=== PATIENT | male | born 1955 | race Caucasian/White ===

== ENCOUNTER → 2024-03-11 15:50 | Outpatient (REF) | payer MEDICARE, OTHER, SELFPAY | LOC: HWRCS 15:50 | PROVIDERS: ATTENDING PHYSICIAN Internal Medicine; FAMILY PHYSICIAN Family Medicine | DX: I48.0 Paroxysmal atrial fibrillation (principal) | CPT/HCPCS: 93306 ==

== ENCOUNTER 2024-03-30 05:59 | Day surgery (SDC) | payer MEDICARE, OTHER, SELFPAY ==
[2024-03-17 08:21] VITALS: BMI 28.0
[2024-03-30] VITALS (9 sets, daily range): BP systolic 90–126; BP diastolic 46–74; BMI 27.1
--- NOTE | 2024-03-30 10:27 | ITS.CL.ABL ---
Addendum entered and electronically signed by Akil Bell MD 03/30/24 10:40:
Delete - in error.
Please delete this report.
Correction:
Patient does not have any ICD in place. There was pasting error with the device interrogation. Please delete this report.
Original Note:
[facility] Splitter - Ablation
Ablation
Procedure Report:
AFIB ablation:
Mr. Owusu is a very pleasant 69 yr old gentleman with symptomatic paroxysmal AF presented today to the EP lab for atrial fibrillation ablation.
CHADSVasc 2 (Age, HTN)
Date of the Procedure:
03/30/2024
Indications:
Paroxysmal atrial fibrillation
Pre-Operative Diagnosis:
Paroxysmal atrial fibrillation
Post-Operative Diagnosis:
Paroxysmal atrial fibrillation
Procedure Performed:
Atrial fibrillation ablation with Pulsed-Field approach for pulmonary vein isolation
Performing Physician:
Akil Bell MD
Assistants:
EP staff
Anesthesia:
See anesthesia records
Detailed Description of the Procedure:
Written informed consent was obtained from the patient after a full explanation of the risks and benefits of the procedure including the risks of sedation and anesthesia.
The patient was brought to the electrophysiology laboratory in stable condition in fasting state. Continuous electrocardiographic and hemodynamic monitoring was initiated.
The initial rhythm was normal sinus rhythm.
Device Interrogation:
Patient has Med[employer] ICD in place. The device was interrogated at the start of the case. The device and the lead was working normally. The tachy-therapies monitoring and interventions were suspended before the start of the case. The senior analyst programmer
remained connected in the room throughout the procedure.
At the end of the case the device was reprogrammed to normal functioning at the previous settings. All therapies are resumed and ICD was armed before patient left the procedure room.
The procedure site was meticulously prepared with surgical scrub and allowed to dry with no pooling. Sterile draping was applied to cover the procedure site. The image intensifier was draped with sterile bag and positioned over the patient. After
infusion of local anesthetic, vascular access was obtained under ultrasound guidance and sheaths were placed over guide wire as detailed below.
Sheath and Catheter Placement:
In the right femoral vein, an 8-Bahamian sheath was placed under ultrasound guidance for use during the ablation procedure and a mapping catheter was intermittently placed in the high right atrium, right ventricle, left atrium. In the right femoral
vein, another 9-Fr sheath was placed for use during intra-cardiac echo procedure. Another 7Fr sheath was placed in the left femoral vein for CS catheter placement.
The sheaths were upgraded as needed during the case. Intra-cardiac catheters were positioned using direct fluoroscopic guidance. Decapolar catheter advanced into CS position. ICE catheter was placed in RA. The following catheters / sheaths were
placed
Sheaths:
��������� 15Fr steerable sheath (vitaMedMDCath Cross�, [employer]) in right femoral vein in right femoral vein
��������� 9Fr in right femoral vein
Catheters:
��������� LULU HD Grid mapping catheter � at locations of RA, LA
��������� PulseSelect� PFA catheter
��������� ICE catheter -AcuNav - at locations of RA, SVC, and RV.
Intracardiac ECHO:
An 8-Bahamian AcuNav intracardiac ECHO (ICE) probe was advanced through the 9-Bahamian sheath in the right femoral vein into the right atrium under fluoroscopic and ICE ultrasound image guidance and a baseline ECHO study was performed. The left atrial
size was mildly dilated. There was moderate tricuspid regurgitation. The aortic valve was grossly normal. There was normal left ventricular systolic functions. There is no pericardial effusion. All the four veins were identified and has flow
identified.
During the procedure, ICE was used for monitoring of complications, guidance of trans-septal puncture, monitor the catheter position and tracking ablation lesions. No change in the pericardial space noted throughout the procedure.
Trans-septal Puncture:
Heparin was initiated and infused to maintain appropriate ACT. A J-tipped guidewire was advanced through the 8-Bahamian sheath in the right femoral vein into the superior vena cava under fluoroscopic and ICE guidance. The 8-Bahamian sheath was exchanged
for a FlexCath Cross sheath which was advanced into the superior vena cava. An AcXunLight transseptal access system was utilized to perform the trans-septal puncture. The apparatus was withdrawn until it was in contact with the fossa ovalis. The
position was adjusted based on fluoroscopy and ultrasound images from ICE. Under fluoroscopic, hemodynamic and ICE ultrasound guidance, left atrium was cannulated by advancing the needle. Once atrial septum was cannulated, the needle was pulled back
and a guide wire was advanced through the needle into the left atrium. The guide wire was advanced into the left superior pulmonary vein. The dilator was not able to cross the septum and the guide was replaced with [employer] Protrack wire. The dilator
and the sheath was able to cross over the rail of Protrack. Both the sheath and the dilator was advanced into the left atrium. The dilator with the needle was withdrawn. Blood was aspirated from the FlexCath cross sheath and arterial blood
confirmed. The sheath was flushed. Saline injection noted into the left atrium on ICE. The mapping catheter was advanced in the Agilis sheath into the left pulmonary vein. Left atrial pressure was measured.
3D Electroanatomic Mapping:
Using the HD Grid catheter advanced through sheath into the left atrium, an electroanatomic map (EAM) of the left atrium was created using [employer] mapping system. The map was used for localization of catheter position and tacking of ablation
lesions. The EAM of the left atrium showed 4 pulmonary veins with two left sided and two right sided veins electrically connected to the body the LA. The EAM showed no significant scar in the left atrium.
The LA was normal in size.
Following the EAM, preparation were made for ablation.
Ablation:
Ablation # 1: Pulmonary vein Isolation:
Glycopyrrolate 0.2 mg was given prior to the placement of ablation. Using [employer]� pulsed field ablation system, pulmonary vein isolation was achieved. First the ablation catheter was placed in the LIPV and ostial ablation lesions were performed
in a counter clock [place] approach all around the PV ostium circumferentially. Then the catheter was placed on the antral location and multiple ablation lesions were placed circumferentially on the antrum of the vein.
In the similar fashion, the LSPV were isolated.
Then the catheter was moved to right sided veins. The ostial and antral ablations were placed as noted above to the RSPV and RIPV.
Post ablation Electroanatomic mapping:
Once the sinus rhythm achieved, the LA was mapped with HD grid in detail.
The veins were isolated and the posterior wall had no electrogram left as well. Rest of the LA was normal. The ALTAF had good signal present.
EPS and Confirmation of the PVI and bidirectional block:
Following achievement of entrance block at the pulmonary veins, pacing from the HD catheter in each of the four veins at 10 milliamps for 2 milliseconds showed entrance and exit block. All PVI were rechecked at the end of the case and remained
isolated with dissociated and local capture with pacing. Entrance and exit block were demonstrated in all veins.
Procedure End
ICE study was done again that showed no epicardial accumulation. No complications noted.
Following the completion of the EP study, catheters were removed. Protamine 30 mg was given at the end of the procedure and ACT was checked repeatedly. The sheaths were removed and hemostasis achieved with VASCADE and manual compression after
acceptable ACT is achieved.
Left atrial Pressure:
Mean LA pressure was 8mmHg
Mean RA pressure was 3mmHg
Estimated Blood loss:
<10 cc
Specimens Removed:
None.
Implants / Devices:
None
Urine output:
None
Packs / Drains/ Tubes:
None
Instrument / Sponge Count Correct:
Yes
Complications of the Procedure:
None
Condition of Patient at Time of Transfer:
Hemodynamically stable with no neurological or vascular compromise.
Summary:
Successful atrial fibrillation ablation with Pulsed Field approach for pulmonary vein isolation
Figures from the Procedure:
Figure 1: The electroanatomic mapping (EAM) of the left atrium with bipolar voltage (purple indicates normal electrical activity with trevino as no myocardial muscle electric activity indicating a line of block or scar.
--- NOTE | 2024-03-30 10:40 | ITS.CL.ABL ---
Instrumentation Engineering Technician - Ablation
Ablation
Procedure Report:
AFIB ablation:
Mr. Owusu is a very pleasant 69 yr old gentleman with symptomatic paroxysmal AF presented today to the EP lab for atrial fibrillation ablation.
Date of the Procedure:
03/30/2024
Indications:
Paroxysmal atrial fibrillation
Pre-Operative Diagnosis:
Paroxysmal atrial fibrillation
Post-Operative Diagnosis:
Paroxysmal atrial fibrillation
Procedure Performed:
Atrial fibrillation ablation with Pulsed-Field approach for pulmonary vein isolation
Performing Physician:
Akil Bell MD
Assistants:
EP staff
Anesthesia:
See anesthesia records
Detailed Description of the Procedure:
Written informed consent was obtained from the patient after a full explanation of the risks and benefits of the procedure including the risks of sedation and anesthesia.
The patient was brought to the electrophysiology laboratory in stable condition in fasting state. Continuous electrocardiographic and hemodynamic monitoring was initiated.
The initial rhythm was normal sinus rhythm.
The procedure site was meticulously prepared with surgical scrub and allowed to dry with no pooling. Sterile draping was applied to cover the procedure site. The image intensifier was draped with sterile bag and positioned over the patient. After
infusion of local anesthetic, vascular access was obtained under ultrasound guidance and sheaths were placed over guide wire as detailed below.
Sheath and Catheter Placement:
In the right femoral vein, an 8-Greenlandic sheath was placed under ultrasound guidance for use during the ablation procedure and a mapping catheter was intermittently placed in the high right atrium, right ventricle, left atrium. In the right femoral
vein, another 9-Fr sheath was placed for use during intra-cardiac echo procedure. Another 7Fr sheath was placed in the left femoral vein for CS catheter placement.
The sheaths were upgraded as needed during the case. Intra-cardiac catheters were positioned using direct fluoroscopic guidance. Decapolar catheter advanced into CS position. ICE catheter was placed in RA. The following catheters / sheaths were
placed
Sheaths:
��������� 15Fr steerable sheath (FlexCath Cross�, [employer]) in right femoral vein in right femoral vein
��������� 9Fr in right femoral vein
Catheters:
��������� LULU HD Grid mapping catheter � at locations of RA, LA
��������� PulseSelect� PFA catheter
��������� ICE catheter -AcuNav - at locations of RA, SVC, and RV.
Intracardiac ECHO:
An 8-Greenlandic AcuNav intracardiac ECHO (ICE) probe was advanced through the 9-Greenlandic sheath in the right femoral vein into the right atrium under fluoroscopic and ICE ultrasound image guidance and a baseline ECHO study was performed. The left atrial
size was mildly dilated. There was moderate tricuspid regurgitation. The aortic valve was grossly normal. There was normal left ventricular systolic functions. There is no pericardial effusion. All the four veins were identified and has flow
identified.
During the procedure, ICE was used for monitoring of complications, guidance of trans-septal puncture, monitor the catheter position and tracking ablation lesions. No change in the pericardial space noted throughout the procedure.
Trans-septal Puncture:
Heparin was initiated and infused to maintain appropriate ACT. A J-tipped guidewire was advanced through the 8-Greenlandic sheath in the right femoral vein into the superior vena cava under fluoroscopic and ICE guidance. The 8-Greenlandic sheath was exchanged
for a FlexCath Cross sheath which was advanced into the superior vena cava. An [employer] Synth transseptal access system was utilized to perform the trans-septal puncture. The apparatus was withdrawn until it was in contact with the fossa ovalis. The
position was adjusted based on fluoroscopy and ultrasound images from ICE. Under fluoroscopic, hemodynamic and ICE ultrasound guidance, left atrium was cannulated by advancing the needle. Once atrial septum was cannulated, the needle was pulled back
and a guide wire was advanced through the needle into the left atrium. The guide wire was advanced into the left superior pulmonary vein. The dilator was not able to cross the septum and the guide was replaced with [employer] Protrack wire. The dilator
and the sheath was able to cross over the rail of Protrack. Both the sheath and the dilator was advanced into the left atrium. The dilator with the needle was withdrawn. Blood was aspirated from the FlexCath cross sheath and arterial blood
confirmed. The sheath was flushed. Saline injection noted into the left atrium on ICE. The mapping catheter was advanced in the Agilis sheath into the left pulmonary vein. Left atrial pressure was measured.
3D Electroanatomic Mapping:
Using the HD Grid catheter advanced through sheath into the left atrium, an electroanatomic map (EAM) of the left atrium was created using [employer] LULU mapping system. The map was used for localization of catheter position and tacking of ablation
lesions. The EAM of the left atrium showed 4 pulmonary veins with two left sided and two right sided veins electrically connected to the body the LA. The EAM showed no significant scar in the left atrium.
The LA was normal in size.
Following the EAM, preparation were made for ablation.
Ablation:
Ablation # 1: Pulmonary vein Isolation:
Glycopyrrolate 0.2 mg was given prior to the placement of ablation. Using [employer]� pulsed field ablation system, pulmonary vein isolation was achieved. First the ablation catheter was placed in the LIPV and ostial ablation lesions were performed
in a counter clock [place]vel[place] approach all around the PV ostium circumferentially. Then the catheter was placed on the antral location and multiple ablation lesions were placed circumferentially on the antrum of the vein.
In the similar fashion, the LSPV were isolated.
Then the catheter was moved to right sided veins. The ostial and antral ablations were placed as noted above to the RSPV and RIPV.
Post ablation Electroanatomic mapping:
Once the sinus rhythm achieved, the LA was mapped with HD grid in detail.
The veins were isolated and the posterior wall had no electrogram left as well. Rest of the LA was normal. The ALTAF had good signal present.
EPS and Confirmation of the PVI and bidirectional block:
Following achievement of entrance block at the pulmonary veins, pacing from the HD catheter in each of the four veins at 10 milliamps for 2 milliseconds showed entrance and exit block. All PVI were rechecked at the end of the case and remained
isolated with dissociated and local capture with pacing. Entrance and exit block were demonstrated in all veins.
Procedure End
ICE study was done again that showed no epicardial accumulation. No complications noted.
Following the completion of the EP study, catheters were removed. Protamine 30 mg was given at the end of the procedure and ACT was checked repeatedly. The sheaths were removed and hemostasis achieved with VASCADE and manual compression after
acceptable ACT is achieved.
Left atrial Pressure:
Mean LA pressure was 8mmHg
Mean RA pressure was 3mmHg
Estimated Blood loss:
<10 cc
Specimens Removed:
None.
Implants / Devices:
None
Urine output:
None
Packs / Drains/ Tubes:
None
Instrument / Sponge Count Correct:
Yes
Complications of the Procedure:
None
Condition of Patient at Time of Transfer:
Hemodynamically stable with no neurological or vascular compromise.
Summary:
Successful atrial fibrillation ablation with Pulsed Field approach for pulmonary vein isolation
Figures from the Procedure:
Figure 1: The electroanatomic mapping (EAM) of the left atrium with bipolar voltage (purple indicates normal electrical activity with trevino as no myocardial muscle electric activity indicating a line of block or scar.
[2024-03-30] MEDS: ANESTHETIC LOZENGE 1 LOZENGE PO (11:29)
--- NOTE | 2024-03-30 12:38 | W.PN.UPDATE ---
Update Note
Progress Note Update
Pt seen post PFA. Right femoral site with vascade closure, no ht/bleeding, non tender. Post EKG SB/SR 50-60s, no acute changes. OOB ambulating, urinating without difficulty. Resume eliquis this evening. Continue other meds as before. Followup at [facility]
as scheduled. Home today if groin site/tele remain stable.
== END 2024-03-30 12:32 | disposition home or self-care (01) ==
LOC: CATH 05:59
PROVIDERS: ATTENDING PHYSICIAN Internal Medicine Cardiovascular Disease; FAMILY PHYSICIAN Family Medicine; OTHER PHYSICIAN Internal Medicine
DX: I48.0 Paroxysmal atrial fibrillation (principal); Z79.01 Long term (current) use of anticoagulants; I10 Essential (primary) hypertension; E78.5 Hyperlipidemia, unspecified; E03.9 Hypothyroidism, unspecified
CPT/HCPCS: C1732; C1733; C1892; C1759; 85347; 86850; 86900; 86901; 93005; 93656; C1760

== ENCOUNTER 2024-09-28 06:45 | Day surgery (SDC) | payer MEDICARE, OTHER, SELFPAY ==
[2024-09-28] VITALS (7 sets, daily range): BP systolic 127–153; BP diastolic 70–86; BMI 26.9
[2024-09-28] MEDS: HEPARIN 5000 UNITS SC (09:28)
[2024-09-28] MEDS: TYLENOL 1000 MG PO (09:28)
[2024-09-28] MEDS: NORMOSOL-R/PLASMALYTE-A 1000 IV (09:30)
--- NOTE | 2024-09-28 11:32 | W.IMMPOSTOP ---
Surgical Immed Post Op Note
-
Primary Surgeon: Doris
Assisting: Shannon MERLOS
Pre-op Diagnosis: Incarcerated umbilical hernia
Post-op Diagnosis: Incarcerated umbilical and epigastric hernias
Procedure Performed: Robot assisted laparoscopic repair of Incarcerated umbilical and epigastric hernias (rTAPP) [Hernia size 9cm]
Anesthesia Type: GETA + TAP block
Specimen / Cultures: None
Estimated Blood Loss:5cc
Complications: None immediate
Operative Findings: 2cm x 1.5 cm umbilical hernia with incarcerated fat, 7cm superior to this a 5mm x 1cm epigastric defect with incarcerated fat; 15cm x 15cm bard soft mesh
--- NOTE | 2024-09-28 11:35 | OR.RPT ---
Operative Report
Operative Report
Primary Surgeon: Doris
Assisting: Shannon MERLOS
Pre-op Diagnosis: Incarcerated umbilical hernia
Post-op Diagnosis: Incarcerated umbilical and epigastric hernias
Procedure Performed: Robot assisted laparoscopic repair of Incarcerated umbilical and epigastric hernias (rTAPP) [Hernia size 9cm]
Anesthesia Type: GETA + TAP block
Specimen / Cultures: None
Estimated Blood Loss:5cc
Complications: None immediate
Operative Findings: 2cm x 1.5 cm umbilical hernia with incarcerated fat, 7cm superior to this a 5mm x 1cm epigastric defect with incarcerated fat; 15cm x 15cm bard soft mesh
Date of surgery: 09/25/24
Indications:� This 69M developed a symptomatic incarcerated umbilical hernia. Robot assisted laparoscopic repair was planned.
Description of procedure:� The patient was taken to the operating room and positioned into supine position. The patient�s abdomen was prepped and draped in standard sterile fashion. A time-out was completed verifying correct patient, procedure,
site, positioning, and implants and special equipment prior to beginning this procedure.� The hernia was partially manually reduced after induction. A stab incision was made in the left upper quadrant, a Veress needle was inserted and proper
position was confirmed by aspiration and saline drop test. Following this, pneumoperitoneum was created with insufflation of carbon dioxide to 12 mmHg. Then a 8mm robotic trocar was inserted at the left anterior axillary line at the level of the
umbilicus. The laparoscope was inserted and no injuries were identified in the area. Under direct visualization, the initial trocar was exposed and two 8mm trocars were placed a hand's breadth above and below the initial trocar under direct
visualization.
Attention was turned to the umbilical defect. The peritoneum was incised several cm superior to the defect and a peritoneal flap was developed in transverse and caudad directions using blunt and sharp dissection and judicious electrocautery. The
defect was identified and measured as above. An additional epigastric defect was also identified. Incarcerated fatty contents were reduced from both defects. The defects were closed with 0 PDS stratafix suture. A 15cm x 15cm bard soft mesh was
passed into the abdomen. It was placed against the underside of the abdominal wall and secured in place with 2-0 vicryl sutures at all four corners and under the defect. The flap was closed over the mesh and secured with 2-0 monocryl stratafix
suture. A 14g angiocath was used to decompress the preperitoneal space. The flap sealed and suctioned nicely up to the abdominal wall. The mesh did not fold nor curl. A transversus abdominis plane block was then performed under laparoscopic vision
with marcaine/decadron.
After ensuring adequate hemostasis, the trocars were removed and the pneumoperitoneum allowed to escape. The trocar incisions were closed at the skin level using 4-0 monocryl and topical skin adhesive. All counts were correct and the patient
tolerated the procedure well and was taken to the postanesthesia care unit in stable condition.
== END 2024-09-28 13:00 | disposition home or self-care (01) ==
LOC: SDS 06:45
PROVIDERS: ATTENDING PHYSICIAN Surgery
DX: K42.0 Umbilical hernia with obstruction, without gangrene (principal); K43.6 Other and unspecified ventral hernia with obstruction, without gangrene
CPT/HCPCS: 49594; C1781

== ENCOUNTER 2024-11-06 20:39 | Inpatient (IN) | payer MEDICARE, OTHER, SELFPAY ==
[2024-11-06 15:55] VITALS: BP 124/80
[2024-11-06 16:33] LABS: % Basophils 0.3 % (0-2); % Eosinophils 0.2 % (0-6); % Immature Granulocytes 0.4 % (0-0.5); % Monocytes 10.1 % (1.7-9.3); Absolute Lymphocytes 1.1 10^3/uL (1.2-3.4); Absolute Neutrophils 7.9 10^3/uL (1.4-6.5); Hematocrit 42.1 % (39.0-52.0); Hemoglobin 14.7 g/dL (13.0-18.0); Mean Corp Hgb Conc. 34.9 g/dL (33.0-37.0); Mean Corpuscular Hgb 34.3 pg (27.0-31.0); Mean Corpuscular Volume 98.4 fL (80.0-94.0); Mean Platelet Volume 8.9 fL (7.4-10.4); Nucleated Red Blood Cells % 0 % (-); Platelet Count 246 10^3/uL (130-400); Red Blood Cell Count 4.28 10^6/uL (4.70-6.10); Red Cell Dist. Width 12.6 % (11.5-14.5); White Blood Cell Count 10.2 10^3/uL (4.8-10.8)
[2024-11-06 16:50] LABS: ALT (SGPT) 18 U/L (0-50); AST (SGOT) 18 U/L (17-59); Alkaline Phosphatase 60 U/L (38-126); Blood Urea Nitrogen 16 mg/dl (9-20); Calcium 9.4 mg/dl (8.4-10.2); Carbon Dioxide 22 mmol/L (22-30); Chloride 100 mmol/L (98-107); Glucose 120 mg/dl (70-99); Potassium 4.4 mmol/L (3.5-5.1); Sodium 134 mmol/L (135-145); Total Bilirubin 0.9 mg/dl (0.2-1.3); Total Protein 6.6 g/dl (6.3-8.2); eGFR > 60.00
[2024-11-06] MEDS: TYLENOL 1000 MG PO (17:21)
[2024-11-06] MEDS: NSS 1000 IV ×2 (17:24→23:01)
[2024-11-06 17:29] VITALS: BP 125/83
[2024-11-06 17:30] VITALS: BMI 25.2
--- NOTE | 2024-11-06 17:35 | ED.GENMED ---
History of Present Illness
General
Chief Complaint: Male Genito-Urinary Symptoms
Source: patient
Exam Limitations: none
Time Seen by Provider: 11/06/24 16:32
Nursing documentation reviewed up to this point in time: agreed with
History of Present Illness
History of Present Illness:
69 y/o M
h/o htn, hld PAF on eliquis
here with fever, urinary symptoms (dec urination, urgency, frequency), nausea,
pt says he also has mild R back pain
didn't eat all day
feels dehydrated
last tylenol 12 noon
no h/o prostate problems
no bleeding
thinks his urine looks dark/cloudy
no rectal pressure
Past History
Past History
ED Past Medical History: Arrthythmia (Paroxysmal atrial fibrillation) and HTN
ED Past Surgical History: None
Social History
Tobacco: Smoker
Alcohol: Occasional
Drug: None
Personal:
Living: with family
Employment: Employed
Family History
Family History: Negative Early CAD
Review of Systems
Review of Systems
Allergies reviewed?: Yes
All Other Systems: Not applicable
Phy Exam
Physical Exam
Physical Exam:
GENERAL: Alert , in no apparent distress
EYE: pupils equal and reactive
NECK: Supple
ENT: o/p clr, dry mucus membranes.
CARDIAC: Regular rate and rhythm .
LUNGS: Clear breath sounds bilaterally, no acute respiratory distress, no wheezes/rales/rhonchi
ABDOMEN: Soft, without focal tenderness, no r/g, no cvat, normal bowel sounds
R back pain
normal inspection
rectal deferred
NEUROLOGICAL: Alert and oriented, no focal neuro deficits
SKIN: Warm and dry, skin intact.
MUSCULOSKELETAL: No edema, well perfused. neg gonzález's sign
PSYCH: Normal and appropriate interaction.
Course
Orders/Labs/Results
Orders:
Orders
11/06/24 Breakfast
Regular
At Your Request: Full Participation
Does patient need a safe tray?: No
11/06/24 16:12
Complete Blood Count/With Diff Urgent
Comprehensive Metabolic Panel Urgent
11/06/24 16:44
Bladder Scan- Treatment ONCE
11/06/24 17:05
CT Abd/Pel (IV only)-DH only Urgent
Comment:
Reason For Exam: fever, nausea, r flank pain, dysuria,
11/06/24 17:06
0.9% Sodium Chloride 1000 ml [Nss] 1,000 ml IV BOLUS
Acetaminophen [Tylenol] 1,000 mg PO NOW STA
11/06/24 17:26
Lactic Acid Urgent
Urinalysis Reflex To Culture Urgent
Date Specimen was Collected: 11/06/24
Time Specimen was Collected: 16:48
Urine Microscopic Reflex Cult Urgent
Urine Culture Urgent
NITHYA Source: U
Specimen Description:
Date Specimen was Collected: 11/06/24
Time Specimen was Collected: 16:48
11/06/24 18:32
LevoFLOXacin 500 MG/100 ML [Levaquin] 500 mg in 100 ml IV NOW
11/06/24 20:11
Blood Culture Q30M
NITHYA Source: Blood/Venous
Specimen Description:
11/06/24 20:18
Blood Culture Q30M
NITHYA Source: Blood/Venous
Specimen Description:
11/06/24 20:28
Admit/Transfer Patient As Directed
Co-Sign Provider:
Level of Care: Inpatient admission
Assign to:: Telemetry
Physician / Group: declan mari
Diagnosis: UTi
Reason for Telemetry: Arrhythmia
Date to Stop Telemetry: 11/09/24
Time to Stop Telemetry: 11:00
Reason for Hospitalization: UTI
Expected length of stay greater than two midnights?: Yes
ELOS- Estimated Length of Stay in days: 3
I certify the patient meets the requirements for IP care: Yes
PRN Pain Medication Management As Directed
May give lesser potent ordered pain med per pt: Yes
preference::
Protocol:: Medication orders for pain may be administered in a
manner that supports deferring to patient preference
when the pt is:
- Requesting an ordered lesser potent pain medication.
Least to most potent pain medications are defined
as: acetaminophen < NSAID < tramadol < opioids
(morphine, oxycodone, hydromorphone).
- Requesting a lesser dose of the same medication IF
ORDERED.
- Requesting a less intrusive route of administration
if both routes are prescribed by the provider (PO <
IV).
11/06/24 20:29
Code Status As Directed
Resuscitation Status: Full Code
11/06/24 20:31
EKG [Electrocardiogram (*1)] Stat
Reason for Study: Atrial Fibrillation
11/06/24 20:51
Lactic Acid Stat
11/06/24 22:24
0.9% Sodium Chloride 1000 ml [Nss] 1,000 ml IV 125 mls/hr
Acetaminophen [Tylenol] 650 mg PO Q4HPRN PRN
Bisacodyl [Dulcolax] 10 mg RECTAL [id number] PRN
Docusate W/Senna [Senokot-S] 1 tablet PO BIDPRN PRN
Polyethylene Glycol Powder [Miralax] 17 grams PO DAILYPRN PRN
11/06/24 22:24
Activity As Directed
Activity Level: As Tolerated
Vital Signs As Directed
Frequency: Per unit guidelines
11/07/24 00:00
CefTRIAXone [Rocephin] 1,000 mg IV Q24H
11/07/24 08:00
Apixaban [Eliquis] 5 mg PO BID
11/07/24 18:00
Atenolol [Tenormin] 25 mg PO QPM
Cholecalciferol (Vitamin D3) [VITAMIN D3 (cholecalciferol)] 50 mcg PO QPM
Losartan [Cozaar] 25 mg PO QPM
11/09/24 11:00
DC Protocol for Telemetry ONCE
Abnormal Lab Results
11/06/24 11/06/24
16:12 17:26
RBC 4.28 L 10^6/uL
(4.70-6.10)
MCV 98.4 H fL
(80.0-94.0)
MCH 34.3 H pg
(27.0-31.0)
Absolute Neuts (auto) 7.9 H 10^3/uL
(1.4-6.5)
Absolute Lymphs (auto) 1.1 L 10^3/uL
(1.2-3.4)
Absolute Monos (auto) 1.0 H 10^3/uL
(0.1-0.6)
Neutrophils % 78.0 H %
(42.2-75.2)
Lymphocytes % 11.0 L %
(20.5-51.1)
Monocytes % 10.1 H %
(1.7-9.3)
Sodium 134 L mmol/L
(135-145)
Glucose 120 H mg/dl
(70-99)
Urine Ketones 3+ A
(Negative)
Ur Occult Blood Reflex 4+ A
(Negative)
Urine Nitrite (Reflex) Positive A
(Negative)
Leukocyte Esterase Rfl 3+ A
(Negative)
Urine RBC 7-10 A /HPF
(0-2)
Urine WBC (Reflex) 80-90 A /HPF
(0-5)
Urine Bacteria (Reflex) Many A
(Negative)
Urine Albumin (Reflex) 4+ A
(Neg - Trace)
11/06/24 16:12
11/06/24 16:12
Vital Signs
Temp: 39.3 C
Initial and Last Documented VS:
Initial Vital Signs
Temp Pulse Resp BP Pulse Ox
37.8 C 90 18 124/80 98
11/06/24 15:55 11/06/24 15:55 11/06/24 15:55 11/06/24 15:55 11/06/24 15:55
Last Documented Vital Signs
Temp Pulse Resp BP Pulse Ox
37.1 C 90 18 123/107 96
11/06/24 20:02 11/06/24 15:55 11/06/24 15:55 11/06/24 20:00 11/06/24 20:30
MDM/Problems Addressed
Differential Diagnosis Includes:
prostatitis, uti
MDM/Problems Addressed:
andria vázquez
69 y/o M no h/o prostate problems
htn, hld
here with fever, dec urine output/urinary frequency, R back pain
febrile, wbc normal, ua +
ct likely prostatitis and ascending complicated UTI
bcx x 2, levaquin
[facility] urologist agreed with admision
will see in the am
*Critical Care Note
Total Time (30-74mins, 75-104mins- exclusive of procedures): Not Applicable
ED Attending Note
-
Portions of this chart may have been created with voice recognition software.� Occasional wrong word or��sound alike� substitutions may have occurred due to the inherent limitations of voice recognition software.
Discharge Plan
Departure
Patient Disposition: Admit
Date of Disposition: 11/06/24
Time of Disposition: 18:32
Admit to: Med/Surg
Presentation/result/management discussed w/ accepting MD/DO: Hospitalist
Condition: Fair
Covid-19: Not Applicable
Discharge Problem:
Prostatitis, SIRS (systemic inflammatory response syndrome), ascending urinary tract infection
Interventions
Interventions:
*Risk Screen - Suicide Last Done: 11/06/24 15:55
*General Assessment Last Done: 11/06/24 15:55
*ED COVID-19 Vaccine History Last Done: 11/06/24 22:32
ED-Male Genitourinary Assessment Last Done: 11/06/24 17:30
[2024-11-06 17:43] LABS: Urine Albumin 4+ (Neg - Trace); Urine Bilirubin Negative (Negative); Urine Character Cloudy (Clear); Urine Color Yellow; Urine Glucose Negative (Negative); Urine Ketone 3+ (Negative); Urine Leukocyte 3+ (Negative); Urine Nitrite Positive (Negative); Urine Occult Blood 4+ (Negative); Urine Specific Gravity 1.015 (<1.030); Urine Urobilinogen 1+ (Neg - 1+)
[2024-11-06 17:49] LABS: Lactic Acid 0.9 mmol/L (0.7-2.0)
[2024-11-06 18:00] LABS: Urine Squamous Cell 0-2 /LPF (Few)
[2024-11-06 18:01] LABS: Urine Bacteria Many (Negative); Urine White Cell 80-90 /HPF (0-5)
[2024-11-06 18:34] VITALS: BP 117/84
[2024-11-06 19:00] VITALS: BP 114/71
[2024-11-06] MEDS: LEVAQUIN 100 IV (19:44)
[2024-11-06 20:00] VITALS: BP 123/107
--- NOTE | 2024-11-06 20:12 | HPS.HSE ---
Family Physician
-
Family Physician: Judith Holbrook MD
Chief Complaint
-
left pain, fever
History of Present Illness
69-year-old with past medical history for hypertension, hypothyroidism, A-fib, hyperlipidemia presented to us with right flank pain, burning with urination and fever of 102 for past 2 days. Patient was taking Tylenol with some relief in his
symptoms. Patient .patient denied chest pain or short of breath. Patient stating some headache. Patient denied any dizziness or syncope. denied abdominal pain, nausea, vomiting, diarrhea or constipation
Patient received dose of Levaquin in the ER. Blood culture sent from ER. patient received Tylenol and normal saline in ER. Admitting for further management
Medical History
Past Medical History
Past Medical History: Reports Other
Additional Past Medical History:
HNT
hypothyroidism
atrial fib
ascending aortic dilatation
hld
Past Surgical History: Reports Other
Additional Past Surgical History:
cardiac ablation
tendon repair right pointer finger
lap repair of incarcerated umbical and epigastric hernias
Social History
Tobacco: Non-smoker
Alcohol: Occasional
Drug: None
Personal:
Living: With Family
Family History
Family History: Not pertinent
Allergies / Home Medications
Allergies reflects when Allergies were last updated in [employer]
Home Medications with original date entered in [employer]
Allergy/Medication List:
Allergies
Allergy/AdvReac Type Severity Reaction Status Date / Time
No Known Allergies Allergy Verified 11/06/24 15:57
Home Medications
atenolol 25 mg tablet 25 mg PO QPM 05/16/15
cholecalciferol (vitamin D3) 50 mcg (2,000 unit) capsule (Vitamin D3) 50 mcg PO QPM 03/13/24
losartan 50 mg tablet 25 mg PO QPM 03/13/24
apixaban 5 mg tablet (Eliquis) 5 mg PO BID 11/06/24
Review of Systems
-
Constitutional: Reports No Symptoms
EENT: Reports No Symptoms
Respiratory: Reports No Symptoms
Cardiac: Reports No Symptoms
Abdomen/GI: Reports No Symptoms
: Reports Dysuria, Frequency and Flank Pain
Musculoskeletal: Reports No Symptoms
Skin: Reports No Symptoms
Neurological: Reports No Symptoms
Endocrine: Reports No Symptoms
Hematologic/Lymphatic: Reports No Symptoms
Psych: Reports No Symptoms
Physical Exam
Vital Signs
Vital Signs
Temp Pulse Resp BP Pulse Ox
101 F H 90 18 125/83 95
11/06/24 19:13 11/06/24 15:55 11/06/24 15:55 11/06/24 17:29 11/06/24 17:30
Physical Exam
General: Well Developed, Well Nourished and No Apparent Distress
HEENT: NormoCephalic, Moist mucous membranes and Atraumatic
Respiratory: Clear
Cardiac: S1/S2 and Regular Rhythm; No Murmur or Rub
GI: Soft, Non Tender, Non Distended and Normal Bowel Sounds; No Organomegaly
Rectal: Deferred by Provider
Musculoskeletal: No Clubbing, No Cyanosis and No Edema
Skin: No Rash
Neuro: AO x 3 and Nonfocal/grossly intact
Psych: Calm
Laboratory Results
-
11/06/24 16:12
11/06/24 16:12
Laboratory Results
Lactic Acid 0.9 mmol/L (0.7-2.0) 11/06/24 17:26
Total Bilirubin 0.9 mg/dl (0.2-1.3) 11/06/24 16:12
AST 18 U/L (17-59) 11/06/24 16:12
ALT 18 U/L (0-50) 11/06/24 16:12
Alkaline Phosphatase 60 U/L (38-126) 11/06/24 16:12
Data Reviewed
-
CT Scan: Report Reviewed by me
Lab Data: Labs Reviewed by me
Impression/Plan
-
#fever/decreased urine output/urinary frequency and back pain secondary to parostitis/ascending complicated UTI
-blood culture sent from ER
-Initiate on ceftriaxone
-Urology consulted
-Tylenol prn for fever and pain
-CT abdomen pelvis with SEVERE ACUTE INFECTIOUS CYSTITIS.
2. Acute right ascending urinary tract infection.
3. Severely enlarged prostate gland demonstrating heterogeneous enhancement which could be secondary to acute prostatitis or prostate cancer.
4. Severe diffuse colonic diverticulosis.
5. Fusiform infrarenal abdominal aortic aneurysm (2.7 cm AP dimension).
6. Severe discogenic degenerative disease at L2/L3 and L3/L4.
7. Grade 1 anterolisthesis of L5 on S1 secondary to bilateral L5 pars interarticularis spondylolysis.
# Paroxysmal A-fib
- Obtain EKG
- Eliquis and atenolol continued
# Hypertension
- Losartan continued with hold parameters
# DVT prophylaxis
- Eliquis
# CODE STATUS
-Full code
--- NOTE | 2024-11-06 20:17 | W.PN.UPDATE ---
Update Note
Progress Note Update
This note serves as an addendum to the H&P by semiconductor equipment technician FIONA Santa RIVERA
HPI
69M Smoker, on chr Eliquis for Prx AF, HTN seen at ER:
- pw fever, decreased urine output, urgency, frequency
- report nausea, poor POs
- report mild R back pain
- last Tylenol 12 noon
- denied no rectal pressure
No prior HX prostate problems
ER Tx>
NS 1L bolus
IV LVQ 500 mg
Tylenoll 1000 mg
VS
11/06/24
15:55 11/06/24
17:36
Temp 100.0 F 102.7 F H
Pulse 90
Blood pressure 124/80
SaO2 98
Oxygen Mode of Delivery Room air
PE
Gen: no apparent distress, not toxic
HEENT: an icteric
Neck: supple
Lungs: CTA , no acute respiratory distress
Cor: RRR S1 S2
Abdomen: Soft, without focal tenderness
IT RISK ADVISOR: Alert and oriented, no focal neuro deficits
MS: No edema
Psych: Normal and appropriate interaction
Labs
11/06/24 11/06/24
16:12 17:26
WBC 10.2
Sodium 134 L
Creatinine 0.9
eGFR > 60.00
Urine Clarity Cloudy
Urine Nitrite (Reflex) Positive A
Urine RBC 7-10 A
Urine WBC (Reflex) 80-90 A
BCx sent
CT Abd/Pel (IV only)
1. SEVERE ACUTE INFECTIOUS CYSTITIS.
2. Acute right ascending urinary tract infection.
3. Severely enlarged prostate gland demonstrating heterogeneous enhancement which could be secondary to acute prostatitis or prostate cancer.
4. Severe diffuse colonic diverticulosis.
5. Fusiform infrarenal abdominal aortic aneurysm (2.7 cm AP dimension).
6. Severe discogenic degenerative disease at L2/L3 and L3/L4.
7. Grade 1 anterolisthesis of L5 on S1 secondary to bilateral L5 pars interarticularis spondylolysis.
NO PRIOR hospitalist admission:
ASSESSMENT & PLAN
Early Sepsis due to male complicated UTI ( Cystitis, Parostitis with ascending UTI )
SIRS ( T 102.7, WCC 10.2)
Blader scan 48 cc only
ABx of choice for prostatitis : LVQ vs. CFTX
- IV LVQ at ER - will switch to IV CFTX to avoid QTC prolongation
- c/w IV NS
- check LA
- f/u BCx , UCx
- Trend T, WCC and LA
- Uro consulted
Prox AF on chr Eliquis
- c/w Eliquis and atenolol
Normotensive
Benign HTN
- c/w losartan and atenolol with hold index SBP < 100
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
Full code
IP TLM
[2024-11-06 21:13] LABS: Lactic Acid 0.7 mmol/L (0.7-2.0)
--- NOTE | 2024-11-06 22:35 | PTCARENOTE ---
Received patient from ED via stretcher. Patient ambulated from stretcher to bed independently. No current complaints of pain. Oriented patient to room and placed call mtz within reach.
[2024-11-06 22:39] VITALS: BMI 25.2
[2024-11-06 22:52] VITALS: BP 108/74; BMI 26.2
[2024-11-06] MEDS: STERILE WATER FOR INJECTION 10 ML IV (23:01)
[2024-11-06] MEDS: ROCEPHIN 1000 MG IV (23:01)
[2024-11-07 03:43] VITALS: BP 117/71
[2024-11-07] MEDS: NSS 1000 IV (07:30)
[2024-11-07] MEDS: TYLENOL 650 MG PO ×2 (07:30→20:11)
[2024-11-07 07:50] VITALS: BP 125/84
[2024-11-07] MEDS: ELIQUIS 5 MG PO ×2 (08:44→20:11)
[2024-11-07 11:21] VITALS: BP 122/84
--- NOTE | 2024-11-07 12:29 | CM ---
Patient seen bedside w/ spouse. Initial assessment completed. Patient is a 69-year-old with past medical history for hypertension, hypothyroidism, A-fib, hyperlipidemia presented to us with right flank pain, burning with urination and fever of 102
for past 2 days.
Patient resides w/ spouse, daughter and son-in-law in a single story rancher style home- 1 step to enter. Independent w/ ambulating, no device required. Independent w/ ADLs, no DME identified. No SNF/HC hx reported. OP therapy in the past.
Address, point of contact and insurance verified. Physical [address] is [address], [place] [address]
PCP: Judith Holbrook
Pharmacy: [facility]
Plan: Anticipate home; no needs
--- NOTE | 2024-11-07 12:37 | W.PN.HOSP.TC ---
Today's Communication/Plan
-
Continue with high-dose of ceftriaxone
Preliminary urine culture with E. coli
Await for susceptibility results
Await for blood culture data
Assessment / Plan
Assessment / Plan
General: Well Developed, Well Nourished and No Apparent Distress
HEENT: NormoCephalic, Moist mucous membranes and Atraumatic
Respiratory: Clear
Cardiac: S1/S2 and Regular Rhythm; No Murmur or Rub
GI: Soft, Non Tender, Non Distended and Normal Bowel Sounds; No Organomegaly
Rectal: Deferred by Provider
Musculoskeletal: No Clubbing, No Cyanosis and No Edema
Skin: No Rash
Neuro: AO x 3 and Nonfocal/grossly intact
Psych: Calm
Sepsis likely secondary to complicated urinary tract infection secondary to E. coli preliminary data
Blader scan 48 cc only
- continue with ceftriaxone but will increase dose to 2 g
- c/w IV NS
- Lactic acid normal
- Urine culture preliminary with E. coli. Blood cultures are in lab.
- Lactic acid was normal
Prox AF on chr Eliquis
- c/w Eliquis and atenolol
Normotensive
Benign HTN
- c/w losartan and atenolol with hold index SBP < 100
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
Full code
Anticipated Discharge: > 48 hours
Subjective/Interval History
-
Date of Service: November 07, 2024
states of improvement in dysuria
spiked fever earlier today
Objective Data
-
Vital Signs:
Vital Signs
Temp Pulse Resp BP Pulse Ox
98.7 F 67 16 122/84 97
11/07/24 11:21 11/07/24 11:21 11/07/24 11:21 11/07/24 11:21 11/07/24 11:21
I&O
11/06/24 11/07/24 11/08/24
06:59 06:59 06:59
Intake Total 320 / 320
Balance 320 / 320
Data Reviewed
-
Total Time Spent with Patient (in minutes): 55
[2024-11-07 15:22] VITALS: BP 131/82
[2024-11-07] MEDS: NSS IV (16:40)
[2024-11-07] MEDS: ROCEPHIN 2000 MG IV (17:14)
[2024-11-07] MEDS: COZAAR 25 MG PO (17:15)
[2024-11-07] MEDS: STERILE WATER FOR INJECTION 20 ML IV (17:15)
[2024-11-07] MEDS: TENORMIN 25 MG PO (17:15)
[2024-11-07] MEDS: VITAMIN D3 (cholecalciferol) 50 MCG PO (17:16)
[2024-11-07 19:42] VITALS: BP 125/77
[2024-11-07 23:39] VITALS: BP 125/74
[2024-11-08 03:56] VITALS: BP 129/73
[2024-11-08 06:58] LABS: % Basophils 0.9 % (0-2); % Eosinophils 2.4 % (0-6); % Immature Granulocytes 0.7 % (0-0.5); % Lymphocytes 28.4 % (20.5-51.1); % Monocytes 17.9 % (1.7-9.3); % Neutrophils 49.7 % (42.2-75.2); Absolute Basophils 0.1 10^3/uL (0-0.2); Absolute Eosinophils 0.1 10^3/uL (0-0.7); Absolute Lymphocytes 1.7 10^3/uL (1.2-3.4); Absolute Neutrophils 2.9 10^3/uL (1.4-6.5); Hematocrit 36.8 % (39.0-52.0); Hemoglobin 12.8 g/dL (13.0-18.0); Mean Corp Hgb Conc. 34.8 g/dL (33.0-37.0); Mean Corpuscular Hgb 34.3 pg (27.0-31.0); Mean Corpuscular Volume 98.7 fL (80.0-94.0); Mean Platelet Volume 8.7 fL (7.4-10.4); Nucleated Red Blood Cells % 0 % (-); Platelet Count 245 10^3/uL (130-400); Red Blood Cell Count 3.73 10^6/uL (4.70-6.10); Red Cell Dist. Width 12.4 % (11.5-14.5); White Blood Cell Count 5.8 10^3/uL (4.8-10.8)
[2024-11-08 07:27] LABS: Blood Urea Nitrogen 12 mg/dl (9-20); Calcium 8.9 mg/dl (8.4-10.2); Carbon Dioxide 24 mmol/L (22-30); Chloride 105 mmol/L (98-107); Estimated Creatinine Clearance 98 ml/min; Glucose 97 mg/dl (70-99); Potassium 4.2 mmol/L (3.5-5.1); Sodium 138 mmol/L (135-145); eGFR > 60.00
[2024-11-08 07:36] VITALS: BP 127/75
[2024-11-08] MEDS: ELIQUIS 5 MG PO ×2 (08:08→20:15)
--- NOTE | 2024-11-08 10:18 | W.PN.HOSP.TC ---
Today's Communication/Plan
-
Await Ucx final results
IV rocephin for now
OP urology /fu recommended
Assessment / Plan
Assessment / Plan
General: Well Developed, Well Nourished and No Apparent Distress
HEENT: NormoCephalic, Moist mucous membranes and Atraumatic
Respiratory: Clear
Cardiac: S1/S2 and Regular Rhythm; No Murmur or Rub
GI: Soft, Non Tender, Non Distended and Normal Bowel Sounds; No Organomegaly
Rectal: Deferred by Provider
Musculoskeletal: No Clubbing, No Cyanosis and No Edema
Skin: No Rash
Neuro: AO x 3 and Nonfocal/grossly intact
Psych: Calm
Sepsis likely secondary to complicated urinary tract infection secondary to E. coli preliminary data
Blader scan 48 cc only
- continue with ceftriaxone but will increase dose to 2 g
- tolerating po intake. Dced IVF.
- Lactic acid normal
- Urine culture preliminary with E. coli. Blood cultures prelim are negative so far..
- Lactic acid was normal
- OP urology f/u recommended for CT finding of Severely enlarged prostate gland demonstrating heterogeneous enhancement which could be secondary to acute prostatitis or prostate cancer. PSA unclaer if it will be accurate in setting of active
infection. Patient agreeable and amenable to outpatient urology follow-up.
Prox AF on chr Eliquis
- c/w Eliquis and atenolol
Normotensive
Benign HTN
- c/w losartan and atenolol with hold index SBP < 100
Fusiform infrarenal abdominal aortic aneurysm
-OP vascular surgery f/u
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
Full code
Anticipated Discharge: Within 24 hours
Subjective/Interval History
-
Date of Service: November 08, 2024
Denies any dysuria or increasing urgency
Objective Data
-
Labs:
Laboratory Results
04/27/25
06:08
WBC 5.8
Hgb 12.8 L
Hct 36.8 L
Plt Count 245
Sodium 138
Potassium 4.2
Chloride 105
Carbon Dioxide 24
BUN 12
Creatinine 0.8
Glucose 97
Calcium 8.9
Vital Signs:
Vital Signs
Temp Pulse Resp BP Pulse Ox
98.1 F 63 18 127/75 98
11/08/24 07:36 11/08/24 07:36 11/08/24 07:36 11/08/24 07:36 11/08/24 07:36
I&O
11/07/24 11/08/24 11/09/24
06:59 06:59 06:59
Intake Total 1520 / 1520
Balance 1520 / 1520
[2024-11-08 15:20] VITALS: BP 115/78
[2024-11-08] MEDS: VITAMIN D3 (cholecalciferol) 50 MCG PO (17:04)
[2024-11-08] MEDS: TENORMIN 25 MG PO (17:04)
[2024-11-08] MEDS: COZAAR 25 MG PO (17:04)
[2024-11-08] MEDS: STERILE WATER FOR INJECTION 20 ML IV (17:05)
[2024-11-08] MEDS: ROCEPHIN 2000 MG IV (17:06)
[2024-11-08] MEDS: TYLENOL 650 MG PO (20:14)
[2024-11-09 00:02] VITALS: BP 125/77
[2024-11-09 07:21] LABS: % Basophils 0.6 % (0-2); % Eosinophils 2.7 % (0-6); % Immature Granulocytes 0.8 % (0-0.5); % Lymphocytes 30.3 % (20.5-51.1); % Neutrophils 50.6 % (42.2-75.2); Absolute Eosinophils 0.2 10^3/uL (0-0.7); Absolute Immature Granulocytes 0.1 10^3/uL (0-0.05); Absolute Lymphocytes 1.9 10^3/uL (1.2-3.4); Absolute Neutrophils 3.2 10^3/uL (1.4-6.5); Hematocrit 41.9 % (39.0-52.0); Hemoglobin 14.4 g/dL (13.0-18.0); Mean Corp Hgb Conc. 34.4 g/dL (33.0-37.0); Mean Corpuscular Volume 99.1 fL (80.0-94.0); Mean Platelet Volume 8.4 fL (7.4-10.4); Nucleated Red Blood Cells % 0 % (-); Platelet Count 276 10^3/uL (130-400); Red Blood Cell Count 4.23 10^6/uL (4.70-6.10); Red Cell Dist. Width 12.5 % (11.5-14.5); White Blood Cell Count 6.3 10^3/uL (4.8-10.8)
[2024-11-09 07:35] VITALS: BP 135/79
[2024-11-09 08:17] LABS: Blood Urea Nitrogen 12 mg/dl (9-20); Calcium 9.8 mg/dl (8.4-10.2); Carbon Dioxide 27 mmol/L (22-30); Chloride 104 mmol/L (98-107); Estimated Creatinine Clearance 98 ml/min; Glucose 99 mg/dl (70-99); Potassium 4.8 mmol/L (3.5-5.1); Sodium 140 mmol/L (135-145); eGFR > 60.00
[2024-11-09] MEDS: ELIQUIS 5 MG PO (09:26)
[2024-11-09] MEDS: FLUSH (NSS) 2 FLUSH IV (10:40)
[2024-11-09] MEDS: INVANZ 60 MG IV (10:40)
--- NOTE | 2024-11-09 12:26 | CON.ID ---
Addendum entered and electronically signed by Joy Noel MD 11/09/24 13:13:
[id number]
reviewed cultures for ESBL isolate, antibiotic management
Original Note:
Consultation
-
Date/Time Consultation Requested: 11/09/24 8:59
Date/Time Consultation Performed: 11/09/28 12:30
Requesting Provider: Dr Nicole
Performing Provider: Dr Noel
Reason for Consultation: prostatitis
Chief Complaint / Past History
Chief Complaint
Right flank pain and dysuria
History of Present Illness
Mr Owusu is a 69 year old male with history of hypertension who presented [facility] on 11/06 for right flank pain, dysuria and fever to 102. Also some headache. Tylenol provided some improvement. Denied chest pain or shortness of breath, dizziness,
abdominal pain, nausea, vomiting, diarrhea or constipation. Typically awakens twice a night to urinate. Does notice a need to push to urinate and a sense of incomplete bladder emptying - these symptoms have not been particularly bothersome. Works
out an hour a day.
Since arrival here patient was initially febrile to 102.7, bp has overall been stable, wbc on arrival 10.2 and today 6.3, hgb 14.4, plt 276, L shift was present on arrival and has resolved, Cr at baseline on arrival at 0.8 and remains at baseline
0.8, UA 80-90 wbc/hpf and many bacteria, 11/06 CT a/p notable for probable cystitis, prostatitis, urine culture grew 100K ESBL E coli and blood cultures x2 were negative, patient has been on ceftriaxone until today when he was switched to ertapenem.
ID is consulted for assistance with management. Patient reports since arrival flank pain has resolved, no suprapubic tenderness, he does have what he described as minimal dysuria at this time.
Past History
Additional Past Medical History:
HTN
hypothyroidism
atrial fib
ascending aortic dilatation
hld
Additional Past Surgical History:
cardiac ablation
tendon repair right pointer finger
lap repair of incarcerated umbical and epigastric hernias
Allergy History:
No Known Allergies Allergy (Verified 11/06/24 15:57)
Medications Reviewed: Yes
Social History
Tobacco: Non-Smoker
Alcohol: Occasional
Drug: None
Family History
Family History: Not Pertinent
Review of Systems
Review of Systems
General: Fever and Chills
All systems: All other systems were reviewed and were negative
Vital Signs
Temp Pulse Resp BP Pulse Ox
98.3 F 75 18 135/79 98
11/09/24 07:35 11/09/24 07:35 11/09/24 07:35 11/09/24 07:35 11/09/24 07:35
Physical Exam
Physical Exam
Constitutional: No Acute Distress
Cardiovascular: Regular Rate and S1/S2; Negative Murmur or Rub
Pulmonary: Clear and Symmetric; Negative Wheezes, Rales or Rhonchi
Gastrointestinal: Soft, Non Tender, Non Distended and Normal Bowel Sounds
Genito-Urinary: Negative Suprapubic Tenderness or CVA Tenderness
Skin: Warm and Dry; Negative Rash or Jaundice
Lab / Diagnostic Study Results
11/09/24 06:34
11/09/24 06:34
Abs Immat Gran (auto) 0.1 10^3/uL (0-0.05) H 11/09/24 06:34
Absolute Neuts (auto) 3.2 10^3/uL (1.4-6.5) 11/09/24 06:34
Absolute Lymphs (auto) 1.9 10^3/uL (1.2-3.4) 11/09/24 06:34
Absolute Monos (auto) 1.0 10^3/uL (0.1-0.6) H 11/09/24 06:34
Absolute Basos (auto) 0.0 10^3/uL (0-0.2) 11/09/24 06:34
Immature Gran % 0.8 % (0-0.5) H 11/09/24 06:34
Neutrophils % 50.6 % (42.2-75.2) 11/09/24 06:34
Lymphocytes % 30.3 % (20.5-51.1) 11/09/24 06:34
Monocytes % 15.0 % (1.7-9.3) H 11/09/24 06:34
Eosinophils % 2.7 % (0-6) 11/09/24 06:34
Basophils % 0.6 % (0-2) 11/09/24 06:34
Lactic Acid 0.7 mmol/L (0.7-2.0) 11/06/24 20:51
Ur Squamous Epith Cells 0-2 /LPF (Few) 11/06/24 17:26
Microbiology Results
Micro:
11/06/24 17:26 Urine Culture - Final
Urine Escherichia coli - ESBL
11/06/24 20:18 Blood Culture - Preliminary
Blood/Venous No Growth in 48 hours- Final report to follow
11/06/24 20:11 Blood Culture - Preliminary
Blood/Venous No Growth in 48 hours- Final report to follow
Assessment / Plan
Prostatitis, Cystitis, Pyelonephritis due to ESBL E coli
- blood cultures x2 are no growth at 48 hours
- isolate is sensitive to bactrim, ertapenem
- renal function normal
- switch to bactrim, plan a 4 week course, check BMP in two weeks
- advised patient to limit his intake of potassium containing foods while on bactrim
- stable for dc from ID perspective, recommend outpatient follow up with Urology
Care Review
Plan reviewed with: Physician (Dr isaak leahy, bactrim)
--- NOTE | 2024-11-09 12:49 | W.PN.HOSP.TC ---
Addendum entered and electronically signed by Suma Nicole MD 11/09/24 15:26:
total DC time 39 min
Original Note:
Today's Communication/Plan
-
DC today
Assessment / Plan
Assessment / Plan
General: Well Developed, Well Nourished and No Apparent Distress
HEENT: NormoCephalic, Moist mucous membranes and Atraumatic
Respiratory: Clear
Cardiac: S1/S2 and Regular Rhythm; No Murmur or Rub
GI: Soft, Non Tender, Non Distended and Normal Bowel Sounds; No Organomegaly
Rectal: Deferred by Provider
Musculoskeletal: No Clubbing, No Cyanosis and No Edema
Skin: No Rash
Neuro: AO x 3 and Nonfocal/grossly intact
Psych: Calm
A/P:
# Sepsis secondary to complicated urinary tract infection / prostatitis with ESBL E coli
CT finding of severely enlarged prostate gland demonstrating heterogeneous enhancement which could be secondary to acute prostatitis or prostate cancer.
appreciate ID input, OK to DC with Bactrim for 4 weeks
Repeat BMP in 2 weeks
outpatient urology follow-up.
# Prox AF on chronic Eliquis
c/w Eliquis and atenolol
# Benign HTN
c/w losartan and atenolol with hold index SBP < 100
# Fusiform infrarenal abdominal aortic aneurysm
OP vascular surgery f/u
DVT Px: on [employer] Eliquis
Full code
DW ID
Anticipated Discharge: Today
Subjective/Interval History
-
Date of Service: November 09, 2024
Objective Data
-
Labs:
Laboratory Results
11/09/24
06:34
WBC 6.3
Hgb 14.4
Hct 41.9
Plt Count 276
Sodium 140
Potassium 4.8
Chloride 104
Carbon Dioxide 27
BUN 12
Creatinine 0.8
Glucose 99
Calcium 9.8
Vital Signs:
Vital Signs
Temp Pulse Resp BP Pulse Ox
36.8 C 75 18 135/79 98
11/09/24 07:35 11/09/24 07:35 11/09/24 07:35 11/09/24 07:35 11/09/24 07:35
I&O
11/08/24 11/09/24 11/10/24
06:59 06:59 06:59
Intake Total 1520 / 1520 1060 / 1060
Balance 1520 / 1520 1060 / 1060
Review of Systems
-
History Source: Patient
All other systems: Reviewed and negative
Data Reviewed
-
Labs: Labs Reviewed by me
[2024-11-09] MEDS: BACTRIM DS 800 MG/160 MG 1 TABLET PO (13:10)
--- NOTE | 2024-11-09 13:15 | CM ---
MD entered order for discharge.
Spoke with pt he agrees with dc today . IMM reviewed with pt , He states understanding.
Offered VN he declined need.
Pebbles will drive him home today.
PLAn Home no needs r
[2024-11-09 14:39] VITALS: BP 142/80
--- NOTE | 2024-11-09 15:22 | W.DCSUMMARY ---
Discharge Summary
Discharge Data
Date of Admission: 11/06/24
Date of Discharge: 11/09/24
-
Pending Results: No
Hospital Course
Principal Diagnosis:
Sepsis secondary to complicated urinary tract infection / prostatitis with ESBL E coli.
Chronic Diagnoses:�
Paroxysmal atrial fibrillation on chronic Eliquis and atenolol
Benign hypertension
Fusiform infrarenal abdominal aortic aneurysm
Consultations:�
Infectious disease
Procedures:�
None
Clinical course:�
This is a 69-year-old male, with past medical history as stated above, who presented with fever, decreased urine output, urinary frequency and urgency.
Problem 1:
Sepsis secondary to complicated urinary tract infection / prostatitis with ESBL E coli.
His CT scan showed severely enlarged prostate gland demonstrating heterogeneous enhancement which could be secondary to acute prostatitis or prostate cancer.
His urine culture grew ESBL E. coli, that is sensitive to Bactrim.
Per ID, he can continue Bactrim for 4 weeks. Check BMP in 2 weeks.
He can follow-up with urology outpatient
As for the rest of his medical problems, they were stable during his hospital stay.
Discharge Plan
-
Patient Disposition: Home (Routine Discharge)
Discharge Diagnosis/Procedures: Sepsis secondary to complicated urinary tract infection / prostatitis with ESBL E coli
Condition: Fair
Diet: As tolerated
Activity: As tolerated
Driving Restrictions: As prior to admission
Blood Work: BMP in 2 weeks with your PCP
Referrals:
Campos Chairez MD [Active] - in four to six weeks
Judith Holbrook MD [Family Provider] - in less than 1 week
Kain Enriquez MD [Active] - in two to four weeks (Fusiform infrarenal abdominal aortic aneurysm -f/u. )
Additional Discharge Medication Instructions: Continue Bactrim twice daily for 4 weeks
Prescriptions:
New
sulfamethoxazole-trimethoprim 800-160 mg Tablet
1 tab PO BID 28 Days Qty: 56 0RF
Continued
atenolol 25 MG tablet
25 mg PO QPM
losartan 50 mg Tablet
25 mg PO QPM
cholecalciferol (vitamin D3) [Vitamin D3] 50 mcg (2,000 unit) Capsule
50 mcg PO QPM
Eliquis 5 mg Tablet
5 mg PO BID
Discharge Orders:
Discharge Patient (As Directed); Ordered 11/09/24
Ordered By: Suma Nicole
Discharge Date and Time
Discharge Date/Time: 11/09/24 14:53
Print Language: TURKISH
== END 2024-11-09 14:53 | disposition home or self-care (01) | DRG 872 ==
LOC: 4 EAST ACU 20:39
PROVIDERS: Emergency Medicine; Hospitalist; Physician Assistant; Registered Nurse; ADMITTING PHYSICIAN Internal Medicine; ATTENDING PHYSICIAN Internal Medicine; EMERGENCY PHYSICIAN Emergency Medicine; FAMILY PHYSICIAN Family Medicine; OTHER PHYSICIAN Student in an Organized Health Care Education/Training Program
DX: A41.9 Sepsis, unspecified organism (principal); N39.0 Urinary tract infection, site not specified; Z16.12 Extended spectrum beta lactamase (ESBL) resistance; N41.3 Prostatocystitis; B96.20 Unspecified Escherichia coli [E. coli] as the cause of diseases classified elsewhere; I48.0 Paroxysmal atrial fibrillation; Z79.01 Long term (current) use of anticoagulants; I10 Essential (primary) hypertension; I71.43 Infrarenal abdominal aortic aneurysm, without rupture; N40.0 Benign prostatic hyperplasia without lower urinary tract symptoms; E03.9 Hypothyroidism, unspecified; E78.5 Hyperlipidemia, unspecified; F17.200 Nicotine dependence, unspecified, uncomplicated; K57.30 Diverticulosis of large intestine without perforation or abscess without bleeding; M43.17 Spondylolisthesis, lumbosacral region; R39.15 Urgency of urination
CPT/HCPCS: 51798; 74177; 80048; 80053; 81003; 81015; 83605; 85025; 87040; 87077; 87086; 87186; 93005; 96361; 96365; 99285; J1335; Q9967

== ENCOUNTER → 2025-01-23 07:40 | Outpatient (REF) | payer MEDICARE, OTHER, SELFPAY ==
[2025-01-23 09:11] LABS: Blood Urea Nitrogen 13 mg/dl (9-20)
[2025-01-23 09:19] LABS: C-Reactive Protein < 5.00 mg/L (0.0-10.00)
== END ==
LOC: REG 07:40
PROVIDERS: ATTENDING PHYSICIAN Ophthalmology; FAMILY PHYSICIAN Family Medicine
DX: H47.011 Ischemic optic neuropathy, right eye (principal)
CPT/HCPCS: 36415; 82565; 84520; 85652; 86140

== ENCOUNTER → 2025-01-25 09:39 | Outpatient (REF) | payer MEDICARE, OTHER, SELFPAY | LOC: RAD 09:39 | PROVIDERS: ATTENDING PHYSICIAN Ophthalmology; FAMILY PHYSICIAN Family Medicine | DX: H47.011 Ischemic optic neuropathy, right eye (principal) | CPT/HCPCS: 70482; Q9967 ==